=== PATIENT | female | born 1945 | race Caucasian/White ===

== ENCOUNTER 2016-08-12 11:08 | Emergency (ER) | payer OTHER ==
[~2016-08-12] VITALS: Ht 172.7 cm; Wt 80.1 kg
[2016-08-12] MEDS ORDERED: HYDR20TA PO (11:26)
[2016-08-12] MEDS ORDERED: HYDR10TA PO (11:28)
[2016-08-12] MEDS ORDERED: CLON-275 PO (11:28)
[2016-08-12] MEDS ORDERED: AMLO10TA2 PO (11:28)
[2016-08-12 11:29] VITALS: BP 148/78
[2016-08-12] MEDS ORDERED: SODIUM CHLORIDE FLUSH 10ML SYR IVF ONE (12:00)
[2016-08-12] MEDS ORDERED: ONDANSETRON 2MG/ML, 2ML IVPush ONE (12:00)
[2016-08-12] MEDS ORDERED: SODIUM CHLORIDE 0.9% 1,000ML IVBOLUS ONE (12:00)
[2016-08-12] MEDS ORDERED: ONDANSETRON 2MG/ML, 2ML ONE (12:12)
[2016-08-12 12:34] LABS: ASPARTATE AMINO TRANSFERASE 19 U/L (15-37); BLOOD UREA NITROGEN 10 mg/dL (7-18)
[2016-08-12 13:38] LABS: PATH.CAST-FLAG NOT PRESENT; SPERM-FLAG NOT PRESENT; SRC-FLAG NOT PRESENT; XTAL-FLAG NOT PRESENT; YLC-FLAG NOT PRESENT
== END 2016-08-12 14:23 | disposition home or self-care (01) ==
LOC: ED 14:11
DX: E27.40 Unspecified adrenocortical insufficiency (principal); I10 Essential (primary) hypertension
CPT/HCPCS: 36415; 71010; 80053; 81001; 82533; 83735; 84100; 85025; 93005; 96361; 96374; 99285; J2405; J7030

== ENCOUNTER 2016-09-06 10:21 | Emergency (ER) | payer OTHER ==
[~2016-09-06] VITALS: Ht 172.7 cm; Wt 78.5 kg
[~2016-09-06 10:21] MED LIST: AMLO10TA2 PO; CLON-275 PO; HYDR10TA PO; HYDR20TA PO
[2016-09-06] MEDS ORDERED: SODIUM CHLORIDE FLUSH 10ML SYR IVF ONE (12:30)
[2016-09-06 13:00] LABS: ASPARTATE AMINO TRANSFERASE 9 U/L (15-37); BLOOD UREA NITROGEN 9 mg/dL (7-18)
[2016-09-06] MEDS ORDERED: OMNIPAQUE 350 MG/ML, 100ML BOTTLE ONE (14:03)
[2016-09-06 14:21] VITALS: BP 130/76
== END 2016-09-06 14:50 | disposition home or self-care (01) ==
LOC: ED 12:59
DX: R19.4 Change in bowel habit (principal); I10 Essential (primary) hypertension; Z90.49 Acquired absence of other specified parts of digestive tract
CPT/HCPCS: 36415; 74177; 80053; 81001; 85025; 99285; Q9967

== ENCOUNTER 2019-12-25 18:21 | Emergency (ER) | payer MEDICARE ==
[~2019-12-25] VITALS: Ht 172.7 cm; Wt 91.2 kg
[~2019-12-25 18:21] MED LIST changes: -AMLO10TA2 PO; +AMLO10TA8 PO; +BUPR150T13 PO; +CEFD300C37 PO; +LEVO100T PO; +LEVO88TA2 PO
[2019-12-25] MEDS ORDERED: ONDANSETRON 2MG/ML, 2ML ONE (18:56)
[2019-12-25] MEDS ORDERED: HYDROmorphone 2 MG/ML, 1ML ONE (18:56)
[2019-12-25 18:57] LABS: BASOPHILS # (AUTO) 0.02 x10^3/uL (0-0.1); BASOPHILS % (AUTO) 0 % (0-1); EOSINOPHILS % (AUTO) 1 % (1-7); LYMPHOCYTES # (AUTO) 1.42 x10^3/uL (1-3.4); LYMPHOCYTES % (AUTO) 16 % (22-44); MD NO; MEAN CORPUSCULAR HEMOGLOBIN 31.2 pg (27.0-34.8); MEAN CORPUSCULAR HGB CONC 33.2 g/dL (32.4-35.8); MEAN CORPUSCULAR VOLUME 93.8 fL (80-100); MEAN PLATELET VOLUME 7.7 fL (7.4-10.4); MONOCYTES # (AUTO) 0.16 x10^3/uL (0.2-0.8); MONOCYTES % (AUTO) 2 % (2-9); NEUTROPHILS # (AUTO) 7.07 x10^3/uL (1.8-6.8); NEUTROPHILS % (AUTO) 81 % (42-75); PLATELET COUNT 293 x10^3/uL (130-400); RED BLOOD COUNT 4.39 x10^6/uL (3.82-5.3); RED CELL DISTRIBUTION WIDTH 13.8 % (9.6-15.2)
[2019-12-25] MEDS ORDERED: ONDANSETRON 2MG/ML, 2ML IVPush ONE (19:00)
[2019-12-25] MEDS ORDERED: SODIUM CHLORIDE FLUSH 10ML SYR IVF ONE (19:00)
[2019-12-25] MEDS ORDERED: HYDROmorphone 2 MG/ML, 1ML IVPush PRN (19:00)
[2019-12-25 19:08] LABS: ALANINE AMINOTRANSFERASE 31 U/L (12-78); ALBUMIN 3.9 g/dL (3.4-5.0); ANION GAP 5 mmol/L (5-15); CALCIUM 9.2 mg/dL (8.5-10.1); CHLORIDE 109 mmol/L (98-107); CREATININE 0.93 mg/dL (0.55-1.02)
[2019-12-25 19:10] LABS: ALKALINE PHOSPHATASE 61 U/L (45-117); BILIRUBIN,TOTAL 0.5 mg/dL (0.2-1.0); TOTAL PROTEIN 7.1 g/dL (6.4-8.2)
[2019-12-25 19:40] LABS: MICROSCOPIC AUTO
[2019-12-25] MEDS ORDERED: OMNIPAQUE 350 MG/ML, 100ML BOTTLE ONE (20:00)
[2019-12-25 20:32] VITALS: BP 144/72
--- NOTE | 2019-12-25 20:54 | NUR ---
Patient/Caregiver given discharge instructions and they have confirmed that they understand the instructions. Patient ambulatory with steady gait.
== END 2019-12-25 20:55 | disposition home or self-care (01) ==
LOC: ED 18:53
DX: N30.00 Acute cystitis without hematuria (principal); I10 Essential (primary) hypertension; Z90.89 Acquired absence of other organs; Z90.49 Acquired absence of other specified parts of digestive tract
CPT/HCPCS: 36415; 74177; 80053; 81001; 83690; 85025; 96374; 96375; 99285; J1170; J2405; Q9967

== ENCOUNTER 2020-09-12 08:55 | Emergency (ER) | payer MEDICARE ==
[~2020-09-12] VITALS: Ht 172.7 cm; Wt 86.5 kg
[~2020-09-12 08:55] MED LIST changes: +AMLO-211 PO; -AMLO10TA8 PO
--- NOTE | 2020-09-12 10:14 | NUR ---
hat lining blocker: pt from lobby to room 38
--- NOTE | 2020-09-12 10:15 | NUR ---
PT AMBULATORY TO BR WITH UPRIGHT STEADY GAIT.
--- NOTE | 2020-09-12 10:24 | NUR ---
PT CHANGED INTO GOWN, MONITORS IN PLACE. CALL LIGHT WITHIN REACH. PT C/O PAIN IN L-FLANK/LLQ - 09/21. PT STATES PAIN STARTED TO INCREASE LAST NIGHT
--- NOTE | 2020-09-12 10:57 | NUR ---
PT SITTING ON GURNEY, NADN/VSS. CALL LIGHT WITHIN REACH. PT C/O PAIN IN LLQ/L-FLANK AT 09/21.
[2020-09-12 11:12] LABS: MICROSCOPIC INDICATED
[2020-09-12] MEDS ORDERED: HYDROcodone/APAP 5/325 TABLET ONE (11:12)
[2020-09-12 11:15] LABS: BASOPHILS % (AUTO) 1 % (0-1); EOSINOPHILS % (AUTO) 1 % (1-7); LYMPHOCYTES % (AUTO) 19 % (22-44); MD NO; MEAN CORPUSCULAR HGB CONC 34.7 g/dL (32.4-35.8); MEAN PLATELET VOLUME 8.5 fL (7.4-10.4); MONOCYTES % (AUTO) 6 % (2-9); NEUTROPHILS % (AUTO) 73 % (42-75); PLATELET COUNT 285 x10^3/uL (130-400); RED BLOOD COUNT 4.34 x10^6/uL (3.82-5.3); RED CELL DISTRIBUTION WIDTH 14.2 % (9.6-15.2)
--- NOTE | 2020-09-12 11:22 | NUR ---
PT TO CT
[2020-09-12 11:27] LABS: ALANINE AMINOTRANSFERASE 23 U/L (12-78); ANION GAP 5 mmol/L (5-15); CALCIUM 8.9 mg/dL (8.5-10.1); CHLORIDE 108 mmol/L (98-107); CREATININE 0.81 mg/dL (0.55-1.02)
--- NOTE | 2020-09-12 11:27 | NUR ---
PT BACK FROM CT. PT CONNECTED TO MONITORS, CALL LIGHT WITHIN REACH
[2020-09-12 11:29] LABS: ALKALINE PHOSPHATASE 63 U/L (45-117); BILIRUBIN,TOTAL 0.4 mg/dL (0.2-1.0); TOTAL PROTEIN 7.3 g/dL (6.4-8.2)
[2020-09-12] MEDS ORDERED: HYDROcodone/APAP 5/325 TABLET PO ONE (12:00)
--- NOTE | 2020-09-12 12:20 | NUR ---
PT RESTING ON GURNEY, RESPIRATIONS EVEN AND UNLABORED. NADN/VSS. CALL LIGHT WITHIN REACH. PT NOTIFIED CHART UP FOR RECHECK. NO NEEDS AT THIS TIME
[2020-09-12 13:11] VITALS: BP 124/57
--- NOTE | 2020-09-12 13:25 | NUR ---
PatienT given discharge instructions and RX, they have confirmed that they understand the instructions. Patient ambulatory with steady gait.
== END 2020-09-12 13:27 | disposition home or self-care (01) ==
LOC: ED 11:53
DX: S39.012A Strain of muscle, fascia and tendon of lower back, initial encounter (principal); S33.5XXA Sprain of ligaments of lumbar spine, initial encounter; I10 Essential (primary) hypertension; Z90.89 Acquired absence of other organs; Z90.710 Acquired absence of both cervix and uterus; X58.XXXA Exposure to other specified factors, initial encounter; Y93.89 Activity, other specified; Y92.89 Other specified places as the place of occurrence of the external cause; Y99.8 Other external cause status
CPT/HCPCS: 36415; 74176; 80053; 81001; 83690; 85025; 87086; 99284

== ENCOUNTER 2020-09-17 01:08 | Inpatient (IN) | payer MEDICARE ==
[~2020-09-17] VITALS: Ht 172.7 cm; Wt 84.4 kg
[2020-09-17] MEDS ORDERED: MORPHINE SULFATE 4 MG/ML, 1ML ONE ×2 (02:00→03:32)
[2020-09-17] MEDS ORDERED: ONDANSETRON 2MG/ML, 2ML IVPush ONE ×2 (02:00→04:00)
[2020-09-17] MEDS ORDERED: SODIUM CHLORIDE FLUSH 10ML SYR IVF ONE (02:00)
[2020-09-17] MEDS ORDERED: ONDANSETRON 2MG/ML, 2ML ONE ×2 (02:00→03:32)
[2020-09-17] MEDS: MORPHINE SULFATE 4 MG/ML, 1ML IVPush PRN ×2 (02:08→03:37)
[2020-09-17 02:11] LABS: BASOPHILS % (AUTO) 1 % (0-1); EOSINOPHILS % (AUTO) 3 % (1-7); LYMPHOCYTES % (AUTO) 27 % (22-44); MEAN CORPUSCULAR HEMOGLOBIN 31.7 pg (27.0-34.8); MEAN CORPUSCULAR HGB CONC 34.2 g/dL (32.4-35.8); MEAN PLATELET VOLUME 8.1 fL (7.4-10.4); MONOCYTES % (AUTO) 6 % (2-9); NEUTROPHILS % (AUTO) 63 % (42-75); PLATELET COUNT 336 x10^3/uL (130-400); RED BLOOD COUNT 4.56 x10^6/uL (3.82-5.3); RED CELL DISTRIBUTION WIDTH 14.6 % (9.6-15.2)
--- NOTE | 2020-09-17 02:14 | NUR ---
BREAK RN = PT RESTING IN BED WITH FAMILY AT PT SIDE, PT ON MONITOR WITH VSS. IV PLACED WITH PT MEDICATED PER JUN. PT AT XR NOW
[2020-09-17 02:22] LABS: ALANINE AMINOTRANSFERASE 26 U/L (12-78); ANION GAP 7 mmol/L (5-15); CALCIUM 9.2 mg/dL (8.5-10.1); CHLORIDE 105 mmol/L (98-107); CREATININE 0.96 mg/dL (0.55-1.02)
[2020-09-17 02:26] LABS: ALKALINE PHOSPHATASE 67 U/L (45-117); BILIRUBIN,TOTAL 0.5 mg/dL (0.2-1.0); TOTAL PROTEIN 7.6 g/dL (6.4-8.2); TROPONIN I < 0.015 ng/mL (0.000-0.045)
--- NOTE | 2020-09-17 02:56 | NUR ---
PT EDUCATED ON NEED FOR URINE SAMPLE STS SHE WILL GO SOON.
--- NOTE | 2020-09-17 03:17 | NUR ---
PT UP TO RESTROOM FOR URINE SAMPLE AT THIS TIME, STEADY GAIT, VERBALIZES UNDERSTANDING OF CLEAN CATCH
[2020-09-17 03:33] LABS: MICROSCOPIC INDICATED
--- NOTE | 2020-09-17 03:38 | NUR ---
PT VOMITING ADDITIONAL ZOFRAN ORDERED AND GIVEN PER ERP.
--- NOTE | 2020-09-17 04:59 | NUR ---
[facility] CALLED TO FOLLOW UP ON CT READ, [facility] RADIOLOGIST JUST PICKED UP THE CASE AND SHOULD HAVE THE READ DONE IN A FEW MINS
[2020-09-17] MEDS ORDERED: MORPHINE SULFATE 4 MG/ML, 1ML IVPush PRN (06:30)
[2020-09-17] MEDS ORDERED: SODIUM CHLORIDE 0.9% 1,000 ML IV ONE (06:30)
[2020-09-17] MEDS ORDERED: ONDANSETRON 2MG/ML, 2ML IVPush PRN ×2 (06:30→07:30)
--- NOTE | 2020-09-17 06:53 | NUR ---
BEDSIDE REPORT GIVEN TO QUIN MCCRARY FOR TRANSFER OF PATIENT CARE.
--- NOTE | 2020-09-17 07:24 | NUR ---
DR. TRENT, [facility] AT BEDSIDE FOR EVALUATION.
--- NOTE | 2020-09-17 07:26 | NUR ---
UPDATED BRANDON ARCADIO ON PLAN OF CARE.
--- NOTE | 2020-09-17 07:29 | NUR ---
REPORT GIVEN TO QUIN DYE FOR TRANSFER OF PATIENT CARE.
[2020-09-17] MEDS ORDERED: POLYETHYLENE GLYCOL 17 GM PACKET PO PRN (07:30)
[2020-09-17] MEDS ORDERED: ACETAMINOPHEN 325 MG TABLET PO PRN (07:30)
[2020-09-17] MEDS ORDERED: SENNA/DOCUSATE TABLET PO PRN (07:30)
[2020-09-17] MEDS ORDERED: ONDANSETRON ODT 4 MG PO PRN (07:30)
[2020-09-17] MEDS ORDERED: morphine SULFATE 10 MG/ML, 1ML IVPush PRN (07:30)
--- NOTE | 2020-09-17 07:38 | NUR ---
PATIENT TRANSFERRED TO MEDICAL FLOOR IN STABLE CONDITION VIA GURNEY WITH STAFF AUDITOR. ALL PATIENT BELONGINGS TAKEN TO FLOOR WITH PATIENT.
[2020-09-17 07:49] VITALS: BP 102/68
[2020-09-17 08:19] VITALS: BP 103/67
[2020-09-17] MEDS: D5%-0.45NACL+KCL 20MEQ 1,000 ML IV SCH ×2 (08:31→17:36)
[2020-09-17] MEDS: FAMOTIDINE 20 MG/2 ML IVPush SCH ×2 (08:32→20:21)
[2020-09-17] MEDS: HYDROCORTISONE 100 MG INJ. IVPush SCH ×2 (08:33→20:21)
[2020-09-17] MEDS: ENOXAPARIN 40 MG/0.4 ML SQ SCH (08:33)
[2020-09-17 12:40] VITALS: BP 104/58
[2020-09-17 20:11] VITALS: BP 114/63
[2020-09-18 01:29] VITALS: BP 113/60
[2020-09-18] MEDS: D5%-0.45NACL+KCL 20MEQ 1,000 ML IV SCH ×2 (03:35→15:12)
[2020-09-18 06:53] VITALS: BP 126/67
[2020-09-18 07:45] LABS: BASOPHILS % (AUTO) 1 % (0-1); EOSINOPHILS % (AUTO) 3 % (1-7); LYMPHOCYTES % (AUTO) 24 % (22-44); MEAN PLATELET VOLUME 8.2 fL (7.4-10.4); MONOCYTES % (AUTO) 8 % (2-9); NEUTROPHILS % (AUTO) 65 % (42-75); PLATELET COUNT 295 x10^3/uL (130-400); RED BLOOD COUNT 3.78 x10^6/uL (3.82-5.3); RED CELL DISTRIBUTION WIDTH 14.7 % (9.6-15.2)
[2020-09-18 07:56] LABS: CHLORIDE 109 mmol/L (98-107)
[2020-09-18 07:59] LABS: ALANINE AMINOTRANSFERASE 20 U/L (12-78); ALKALINE PHOSPHATASE 54 U/L (45-117); BILIRUBIN,TOTAL 0.6 mg/dL (0.2-1.0); CREATININE 0.72 mg/dL (0.55-1.02); TOTAL PROTEIN 5.9 g/dL (6.4-8.2)
[2020-09-18 08:13] LABS: ANION GAP 4 mmol/L (5-15)
[2020-09-18] MEDS: ENOXAPARIN 40 MG/0.4 ML SQ SCH (09:13)
[2020-09-18] MEDS: HYDROCORTISONE 100 MG INJ. IVPush SCH ×2 (09:14→20:12)
[2020-09-18] MEDS: FAMOTIDINE 20 MG/2 ML IVPush SCH (09:17)
[2020-09-18 13:08] VITALS: BP 100/52
[2020-09-18 19:59] VITALS: BP 145/70
[2020-09-18] MEDS: PHENOL THROAT SPRAY BOTTLE MM PRN (20:12)
[2020-09-19] MEDS: D5%-0.45NACL+KCL 20MEQ 1,000 ML IV SCH ×2 (00:57→11:15)
[2020-09-19] MEDS: PHENOL THROAT SPRAY BOTTLE MM PRN (00:59)
[2020-09-19 02:19] VITALS: BP 135/71
[2020-09-19 05:58] LABS: ALBUMIN 2.9 g/dL (3.4-5.0); ANION GAP 6 mmol/L (5-15); BASOPHILS % (AUTO) 0 % (0-1); CALCIUM 8.2 mg/dL (8.5-10.1); CHLORIDE 112 mmol/L (98-107); EOSINOPHILS % (AUTO) 2 % (1-7); LYMPHOCYTES % (AUTO) 27 % (22-44); MEAN CORPUSCULAR HEMOGLOBIN 32.3 pg (27.0-34.8); MEAN CORPUSCULAR HGB CONC 34.4 g/dL (32.4-35.8); MEAN PLATELET VOLUME 8.4 fL (7.4-10.4); MONOCYTES % (AUTO) 6 % (2-9); NEUTROPHILS % (AUTO) 65 % (42-75); PLATELET COUNT 292 x10^3/uL (130-400); RED BLOOD COUNT 3.78 x10^6/uL (3.82-5.3)
[2020-09-19 06:02] LABS: ALANINE AMINOTRANSFERASE 16 U/L (12-78); ALKALINE PHOSPHATASE 47 U/L (45-117); BILIRUBIN,TOTAL 0.5 mg/dL (0.2-1.0); TOTAL PROTEIN 5.7 g/dL (6.4-8.2)
[2020-09-19] MEDS: HYDROCORTISONE 100 MG INJ. IVPush SCH (07:50)
[2020-09-19] MEDS: ENOXAPARIN 40 MG/0.4 ML SQ SCH (07:50)
[2020-09-19] MEDS ORDERED: FAMOTIDINE 20 MG/2 ML IVPush SCH (09:00)
[2020-09-19 10:04] VITALS: BP 146/76
[2020-09-19 12:23] VITALS: BP 120/56
== END 2020-09-19 18:44 | disposition home or self-care (01) | DRG 388 ==
LOC: ED 06:00 → EDIP 06:27 → 3N 07:39
PROVIDERS: ADMIT Hospitalist; ATTEND Family Medicine
DX: K56.51 Intestinal adhesions [bands], with partial obstruction (principal); J96.01 Acute respiratory failure with hypoxia; E27.1 Primary adrenocortical insufficiency; E03.9 Hypothyroidism, unspecified; E66.9 Obesity, unspecified; I10 Essential (primary) hypertension; M19.90 Unspecified osteoarthritis, unspecified site; Z90.49 Acquired absence of other specified parts of digestive tract; Z93.2 Ileostomy status; Z79.899 Other long term (current) drug therapy; Z79.891 Long term (current) use of opiate analgesic; Z79.01 Long term (current) use of anticoagulants; Z68.28 Body mass index [BMI] 28.0-28.9, adult
CPT/HCPCS: 36415; 74018; 74021; 74177; 80053; 81001; 83690; 84484; 85025; 87086; 93005; 96374; G0378; J1650; J2405; J1720; J2270; J3480